=== PATIENT | male | born 1985 | race Two or more races ===

== ENCOUNTER 2016-09-01 07:19 | Day surgery (SDC) | payer OTHER ==
[~2016-09-01] VITALS: Ht 180.3 cm; Wt 93.9 kg
[2016-09-01] VITALS (13 sets, daily range): BP systolic 127–144; BP diastolic 58–91
--- NOTE | 2016-09-01 06:49 | Anethesia Preoperative Eval ---
Anesthesia Pre-op PMH/ROS General Date of Evaluation: September 01, 2016 Anesthesiologist: Rusty ASA Score: ASA 2 Mallampati Score Class I : Soft palate, uvula, fauces, pillars visible Class II: Soft palate, uvula, fauces visible Class III: Soft palate, base of uvula visible Class IV: Only hard plate visible Mallampati Classification: Class II Surgeon: Roma Diagnosis: Rectal ulcer Surgical Procedure: Rectal exam under anesthesia and repair of ulcer Anesthesia History: none Family History: no anesthesia problems Allergies: Coded Allergies: No Known Allergies (Unverified , 08/31/16) Medications: see eMAR Past Medical History Cardiovascular: Denies: CAD, HTN, [place], arrhythmia, other, valve dz Pulmonary: Denies: COPD, SUZANNE, asthma, other Gastrointestinal/Genitourinary: Denies: CRI, ESRD, GERD, other Neurologic/Psychiatric: Reports: depression/anxiety, Denies: CVA, TIA, dementia, other Endocrine: Denies: DM, hypothyroidism, other, steroids HEENT: Denies: NULATO (L), NULATO (R), cataract (L), cataract (R), glaucoma, other Hematology/Immune: Denies: DVT, anemia, bleeding disorder, other Musculoskeletal/Integumentary: Denies: DDD, DJD, OA, RA, edema, other PSxH Narrative: Denies Anesthesia Pre-op Phys. Exam Physician Exam see chart Constitutional: NAD Cardiovascular: RRR Respiratory: CTA Airway Exam Mallampati Score: Class II MO: full ROM: full Teeth: intact Anesthesia Pre-op A/P Labs see chart Studies Pre-op Studies: EKG - sr Risk Assessment & Plan Assessment: ASA II Plan: MAC Status Change Before Surgery: No Pre-Antibiotics Drug: N/A ANA BENNETT M.D. September 01, 2016 06:49
[~2016-09-01 07:19] MED LIST: Propofol 10mg/ml 20ml IV ONE; TRUVADA1 TAB ORAL
[2016-09-01] MEDS ORDERED: Ketorolac 30mg Inj ONE ×2 (08:30→09:46)
[2016-09-01] MEDS ORDERED: Lidocaine 1% MPF 10mg/ml 5ml ONE (08:30)
[2016-09-01] MEDS ORDERED: cefOXitin 2gm Inj ONE ×2 (08:30→08:31)
[2016-09-01] MEDS ORDERED: Midazolam 2mg/2ml Inj ONE (08:30)
[2016-09-01] MEDS ORDERED: Metoclopramide 10mg/2ml Inj ONE (08:30)
[2016-09-01] MEDS ORDERED: fentaNYL 100 mcg/2 mL IV ONE (08:30)
[2016-09-01] MEDS ORDERED: LR 1000ml ONE (08:30)
[2016-09-01] MEDS ORDERED: Dexamethasone 4mg/ml vial ONE (08:31)
[2016-09-01] MEDS ORDERED: Bupivacaine w/Epi 0.5% 30ml Vial INJ ONE (08:31)
[2016-09-01] MEDS ORDERED: LR 1000ml 1,000 ML IVLG SCH (08:41)
[2016-09-01] MEDS ORDERED: Midazolam 2mg/2ml Inj IVP PRN (08:45)
[2016-09-01] MEDS ORDERED: fentaNYL 100 mcg/2 mL IV PRN (08:45)
[2016-09-01] MEDS ORDERED: Hydromorphone 0.5mg/0.5ml inj IVP PRN (08:45)
[2016-09-01] MEDS ORDERED: Metoclopramide 10mg/2ml Inj IVP PRN (08:45)
[2016-09-01] MEDS ORDERED: DiphenhydrAMINE 50mg/ml Inj IVP PRN (08:45)
[2016-09-01] MEDS ORDERED: Sterile Water Irrig 1000ml IRRIG ONE (09:00)
[2016-09-01] MEDS ORDERED: NS Irrig 1000ml ONE (09:00)
--- NOTE | 2016-09-01 09:29 | Pre-Procedure Note/Attestation ---
Pre-Procedure Note/Attestation Complete Prior to Procedure Planned Procedure: not applicable Procedure Narrative: Rectal exam under anesthesia, anal biopsy repair of ulceration Indications for Procedure Pre-Operative Diagnosis: anal pain/ulceration Attestation I attest that I discussed the nature of the procedure; its benefits; risks and complications; and alternatives (and the risks and benefits of such alternatives ), prior to the procedure, with the patient (or the patient's legal financial sales representative). I attest that, if there was a reasonable possibility of needing a blood transfusion, the patient (or the patient's legal financial sales representative) was given the [facility] standardized written summary, pursuant to the Rayray Anson Blood Safety Act ([place] Health and Safety Code # 1645, as amended). I attest that I re-evaluated the patient just prior to the surgery and that there has been no change in the patient's H&P, except as documented below: MARY JANE KERN September 01, 2016 09:29
--- NOTE | 2016-09-01 09:31 | Brief Operative Note ---
Immediate Post Operative Note Operative Note Pre-op Diagnosis: anal pain/ulceration Procedure: Rectal exam under anesthesia, full thickness anorectal biopsy and repair of ulceration, proctosigmoidoscopy Post-op Diagnosis: same as pre-op Surgeon: Mary Jane Brandon MD Anesthesiologist: ANA BENNETT M.D. Anesthesia: local, MAC Specimen: yes - posterior and left lateral anorectal biopsy Complications: none Condition: stable Estimated Blood Loss: minimal Drains: none Implant(s) used?: No MARY JANE BRANDON September 01, 2016 09:31
--- NOTE | 2016-09-01 09:35 | Discharge Instructions ---
Discharge Instructions Discharge Instructions Follow up with: Dr Brandon in 2 weeks Call MD/Return to Hospital if: see instruction sheet Diet: regular Resume Normal Activity?: Yes Activity: light activity Follow Up Orders office visit in 2 weeks Special Instructions sitz baths two times per day and especially after bowel movements ice packs x 10 minutes 3 x per day for 48 hours For Surgical Patients Dressing Care: may change May shower: Yes For Congestive Heart Failure Reminder Report to your physician any weight gain of 5 pounds or more in one week. MARY JANE BRANDON September 01, 2016 09:35
--- NOTE | 2016-09-01 09:45 | Immediate Post-Op Evaluation ---
Immediate Post-Op Evalulation Immediate Post-Op Evalulation Procedure: Rectal exam under anesthesia and repair of rectal ulcer Date of Evaluation: September 01, 2016 Time of Evaluation: 09:39 IV Fluids: 700 Blood Products: 0 Estimated Blood Loss: min Urinary Output: 0 Blood Pressure Systolic: 144 Blood Pressure Diastolic: 68 Pulse Rate: 94 Respiratory Rate: 16 O2 Sat by Pulse Oximetry: 100 Temperature (Fahrenheit): 97.8 Pain Score (1-10): 1 Nausea: No Vomiting: No Complications 0 Patient Status: awake, reacts, patent, none Hydration Status: adequate Drug: Cefoxitin 2g Given Within 1 Hr of Incision: Yes Time Given: 08:45 ANA BENNETT M.D. September 01, 2016 09:45
[2016-09-01] MEDS ORDERED: Ketorolac 30mg Inj IV ONE (10:00)
[2016-09-01] MEDS ORDERED: Norco 5mg/325mg tab ORAL ONE (11:10)
--- NOTE | 2016-09-01 13:26 | 48 Hour Post Anesthesia Eval ---
Post Anesthesia Evaluation Procedure: Rectal exam under anesthesia and repair of rectal ulcer Date of Evaluation: September 01, 2016 Time of Evaluation: 11:45 Blood Pressure Systolic: 142 0: 80 Pulse Rate: 85 Respiratory Rate: 16 Temperature (Fahrenheit): 98.2 O2 Sat by Pulse Oximetry: 94 Airway: patent Nausea: No Vomiting: No Pain Intensity: 2 Hydration Status: adequate Cardiopulmonary Status: at baseline Mental Status/LOC: patient returned to baseline Post-Anesthesia Complications: 0 Follow-up care needed: ready to discharge ANA BENNETT M.D. September 01, 2016 13:26
--- NOTE | 2016-09-01 22:47 | Operative Note - Dictated ---
DATE OF OPERATION: 09/01/2016 PREOPERATIVE DIAGNOSIS: Anal pain and anal ulceration. POSTOPERATIVE DIAGNOSIS: Anal pain and anal ulceration. PROCEDURE: Rectal examination under anesthesia, full thickness biopsy of anorectal ulceration and proctosigmoidoscopy. ATTENDING SURGEON: Johanna Brandon M.D. ANESTHESIA: Total intravenous sedation plus 0.5% Marcaine with epinephrine with 6 mg of dexamethasone with local field block. ANESTHESIOLOGIST: Maya Crisostomo M.D. INDICATION: This is a 31-year-old HIV negative gentleman, who had approximately five months or so of anal pain, occasional bleeding and discomfort. He has been treated with a variety of topical ointments, including Canasa suppositories and hydrocortisone suppositories, not resolving. He underwent a colonoscopy in 07/2016, showed general and normal-appearing colon, terminal ileum was not intubated, but there is reported no evidence of inflammatory bowel disease. There was ulceration noted in the distal rectum biopsies which showed some acute inflammation with no other obvious etiology. The patient has also undergone STD evaluations with blood tests, negative for syphilis, gonorrhea, and chlamydia. He has also had rectal swab testing for gonorrhea and chlamydia and these have all been negative. The patient continued to have pain and discomfort. It is unclear the exact source of this ongoing ulceration and discomfort. The patient was recommended to undergo an examination under anesthesia for further evaluation and deeper biopsy to see if we can identify obvious pathology. We have discussed the risks, benefits, and alternatives in detail including risk of bleeding, infection, postoperative pain and discomfort, possible recurrence and ongoing symptoms as well as slow healing and need for additional procedures, treatments, and workup. I specifically reviewed that this is more investigation in origin and may not definitively resolve his symptoms. All of his questions have been answered, he agreed to proceed with the procedure as planned. FINDINGS: Superficial ulceration with predominantly posterior and left lateral anal canal, mild hemorrhoids, small left lateral perianal thrombotic hemorrhoid, normal left rectal mucosa to 13 cm. DESCRIPTION FOR PROCEDURE: The patient was brought to the operating room, placed in the prone gómez-knife position, total intravenous anesthesia was administrated. The patient was brought up the operating table, part of the perineum was prepped and draped in usual sterile fashion. A 0.5% Marcaine with epinephrine mixed with 6 mg of dexamethasone was injected to local anal filed block. Anorectal was then carefully examined using a large [facility] [employer] retractor and there were no large hemorrhoids, no evidence of masses or large ulceration, however, there was several areas of superficial appearing ulcerations predominantly in the posterior anal canal as well as in the left lateral anal canal. There was no evidence of true anal fissures, no evidence of abscess or fistula. The areas of the ulcers were grasped and excised in a full thickness fashion. Care was taken to avoid any injury to its underlying sphincter complex. The wound bases were examined and bleeding points were controlled with electrocautery and the wounds were closed with #2-0 Vicryl sutures. The rest of the anal canal appeared generally unremarkable. There was still some laxity of the rectal mucosa, but no evidence of true prolapse and no other obvious pathology. Proctosigmoidoscopy was then performed to 13 cm, further advancement was precluded with the presence of stool, visualized rectal mucosa, was normal in appearance. At this point, we turned our attention to the thrombotic in the left lateral quadrant, the patient desired to have this removed as well on our preoperative discussion. Therefore, small incisions were made over the clot and underlying vein was excised and the base was cauterized. All wounds were reexamined, excellent hemostasis was assured. Sterile dressing and ice pack was applied. The patient tolerated the procedure well. There were complications. Estimated blood loss was minimal. Sponge, instrument counts were correct. The patient was awakened and transferred to the recovery room in stable condition. Johanna Brandon M.D. DR: Shelia JOB#: [id number] CC: Zach Marley M.D.; [id number] [facility], [facility] [address]; [place] [address]
== END 2016-09-01 11:45 | disposition home or self-care (01) ==
LOC: SUR 07:19
DX: K62.6 Ulcer of anus and rectum (principal); K64.5 Perianal venous thrombosis; F32.9 Major depressive disorder, single episode, unspecified; F41.9 Anxiety disorder, unspecified
CPT/HCPCS: 45100; 45330; 46083; J0694; J1100; J1170; J1885; J2250; J2405; J2704; J2765; J3010; J7120; 94003; 94150